=== PATIENT | female | born 1970 | race Caucasian/White ===

== ENCOUNTER 2021-01-27 07:24 | Day surgery (SDC) | payer OTHER ==
[~2021-01-27 07:24] MED LIST: Dextrose 5%-0.45% NaCl 1,000 ML IV SCH; Midazolam 1 MG/ML 2 ML SDV ONE; fentaNYL 100 MCG/2 ML SDV ONE
[2021-01-27] MEDS ORDERED: fentaNYL 100 MCG/2 ML SDV IV ONE ×3 (07:25→08:20)
[2021-01-27] MEDS ORDERED: Midazolam 1 MG/ML 2 ML SDV IV ONE ×7 (07:25→08:28)
--- NOTE | 2021-01-27 14:23 | OR ---
DATE: 01/27/2021 INTRODUCTION: This 50-year-old female presents for screening colonoscopy. FINDINGS: Normal colonoscopy. RECOMMENDATIONS: Followup screening colonoscopy in 10 years for polyps or sooner for symptoms. PROCEDURE IN DETAIL: After adequate preparation, a colonoscope was inserted into the rectum. This was easily passed all the way to the cecum. Confirmation of the cecum was made by visualization of the ileocecal valve. Photograph of the bowel was taken. The bowel prep was good. On withdrawal of the scope, no abnormalities were noted. The patient has no masses, polyps, bleeding sites, colitis, or diverticulosis. Anal and rectal examinations were also normal. Air was suctioned from the colon, and the scope removed. [facility] /[id number]
== END 2021-01-27 10:05 | disposition home or self-care (01) ==
LOC: DL.ENDO 07:24
PROVIDERS: ATTEND Surgery
DX: Z12.11 Encounter for screening for malignant neoplasm of colon (principal); F17.200 Nicotine dependence, unspecified, uncomplicated; Z91.09 Other allergy status, other than to drugs and biological substances
CPT/HCPCS: 45378; J2250; J3010; J7042